=== PATIENT | male | born 1965 | race African-American/Black ===

== ENCOUNTER → 2021-04-15 10:06 | Outpatient (CLI) | payer OTHER, SELFPAY ==
[2021-04-15 11:20] LABS: COVID19 -Nasal RAPID Negative (Negative)
== END ==
PROVIDERS: PCP Physician Assistant; Visit Provider Student in an Organized Health Care Education/Training Program
DX: Z20.822 Contact with and (suspected) exposure to COVID-19 (principal); Z01.812 Encounter for preprocedural laboratory examination
CPT/HCPCS: 87635

== ENCOUNTER 2021-04-17 10:06 | Day surgery (SDC) | payer OTHER, SELFPAY ==
[2021-04-17 10:35] VITALS: BP 139/87; PULSE 93; RESP 16; TEMP 35.9; O2SAT 98; BMI 25.4
[2021-04-17] MEDS: LACTATED RINGERS 1,000 ML 200 ML IV (10:44)
--- NOTE | 2021-04-17 11:05 | PM.HP.1 ---
History of Present Illness History of Present Illness Chief complaint: SCREENING COLONOSCOPY Patient History Medical History (Updated 04/17/21 @ 10:43 by Karen Cross RN) Hypertension Surgical History (Updated 04/17/21 @ 10:43 by Karen Cross RN) History of colonoscopy No history of previous surgery Family & Social History Social History: household members spouse Tobacco & Substance use: Smoking Status Never smoker alcohol intake current alcohol intake frequency a few times a month Substance Use Type does not use Meds Home Medications and Allergies Home Medications Medication Instructions Recorded Confirmed Type aspirin 81 mg PO DAILY 04/17/21 04/17/21 History chlorthalidone 25 mg PO DAILY 04/17/21 04/17/21 History Allergies Allergy/AdvReac Type Severity Reaction Status Date / Time No Known Drug Allergies Allergy Verified 04/17/21 10:37 Review of Systems Review of Systems ROS: Yes All systems reviewed with the patient and are negative except as otherwise documented Exam Vital Signs (past 8 hours): - 04/17/21 10:35 Temperature 96.6 F L Pulse Rate 93 H Respiratory Rate 16 Blood Pressure 139/87 Pulse Oximetry 98 Oxygen Delivery Method Room Air Narrative Exam Narrative: Awake alert and oriented x3, pupils equal round reactive to light, oropharynx clear, heart regular rate and rhythm, lungs clear to auscultation bilaterally, abdomen nontender and nondistended, extremities without edema, no gross neurologic deficits noted Assessment & Plan Assessment & Plan narrative: History of polyps, family history of colon cancer, for colonoscopy COVID-19 COVID-19 status: Negative
[2021-04-17] MEDS: MIDAZOLAM 5 MG/5 ML VIAL IV (11:13)
[2021-04-17] MEDS: fentaNYL 250 MCG/5 ML INJ IV (11:13)
--- NOTE | 2021-04-17 11:33 | PM.OP.ENDO ---
Operative Date/Time/Diagnoses Date of procedure: 04/17/21 Procedure & Clinicians Study performed: Diagnostic colonoscopy Moderate conscious sedation was administered by the endoscopy nurse and supervised by the endoscopist. The following parameters were monitored: Oxygen saturation, heart rate, blood pressure, and response to care. 6 mg of midazolam and 100 mcg of fentanyl given Same procedure as scheduled: Yes Indications: Personal history of colon polyps. Family history of colon cancer in a first-degree relative, diagnosed in their 60s. Last colonoscopy was about 5 years ago. Procedure Notes Procedure in detail: Prior to the procedure, history and physical was performed, and patient medications and allergies were reviewed. Preprocedure nursing history and assessment was reviewed. Patient identification and proposed procedure were verified by the physician and nurse in the procedure room. The physical status of the patient was reassessed after the procedure. After informed consent was obtained including risks, benefits, and alternatives, the scope was passed under direct vision. Throughout the procedure, the patient's blood pressure, pulse, and oxygen saturations were monitored continuously. The colonoscope was introduced through the anus and advanced to the cecum as identified by the appendiceal orifice and ileocecal valve. The patient tolerated the procedure well. Bowel prep was deemed adequate to detect polyps greater than 5 mm. Digital rectal examination and perianal examination were unremarkable. The rectum was examined carefully in forward view. The entire examined colon was unremarkable. Impression: Normal appearing colon No specimens taken Sedation minutes: 19 Complications: other (0 EBL. No complications) Post-procedure Plan for aftercare: Repeat colonoscopy in 5 years for screening purposes Resume home medications Resume previous diet Patient has a contact number available for emergencies. The signs and symptoms of potential delayed complications were discussed with the patient. Return to normal activities tomorrow. Written discharge instructions were provided to the patient. Discharge home with escort
[2021-04-17 11:38] VITALS: BP 132/82; PULSE 67; RESP 12; TEMP 36.3; O2SAT 97
[2021-04-17 11:43] VITALS: BP 112/70; PULSE 64; RESP 10; O2SAT 97
[2021-04-17 11:48] VITALS: BP 114/75; PULSE 61; RESP 12; TEMP 36.8; O2SAT 97
[2021-04-17 11:55] VITALS: BP 137/85; PULSE 71; RESP 12; TEMP 36.6; O2SAT 99
[2021-04-17 12:13] VITALS: BP 132/76; PULSE 62; RESP 14; TEMP 36; O2SAT 100
== END 2021-04-17 12:15 | disposition home or self-care (01) ==
PROVIDERS: PCP Physician Assistant; Referring Provider Internal Medicine; Visit Provider Internal Medicine
PROC: 0DJD8ZZ Inspection of Lower Intestinal Tract, Via Natural or Artificial Opening Endoscopic (ICD-10-PCS; CPT 45378; principal; 2021-04-17 11:00)
DX: Z12.11 Encounter for screening for malignant neoplasm of colon (principal); Z86.010 Personal history of colon polyps; Z80.0 Family history of malignant neoplasm of digestive organs; I10 Essential (primary) hypertension
CPT/HCPCS: G0105; J2250; J3010